=== PATIENT | male | born 1955 | race Hispanic/Latino ===

== ENCOUNTER 2017-04-28 19:16 | Observation (INO) | payer MEDICARE ==
[~2017-04-28 19:16] MED LIST: ISOVUE-370 76%-LOCM 1 ML ONE
[2017-04-28 20:02] LABS: #Lymphocytes 0.6 thou/uL (1.20-3.40); #Monocytes 0.9 thou/uL (0.11-0.59); #Neutrophils 8.3 thou/uL (1.40-6.50); %Basophils 0.3 % (0.0-1.0); %Eosinophils 0.4 % (0.0-10.0); %Lymphocytes 5.6 % (21.0-51.0); %Monocytes 8.9 % (0.0-10.0); %Neutrophils 84.9 % (42.0-75.0); Mean Corpuscular HGB CONC 35.9 g/dL (32.0-36.0); Mean Corpuscular Hemoglobin 31.9 pg (27.0-31.0); Mean Corpuscular Volume 88.9 fl (80.0-94.0); Platelet Count 178 thou/uL (130-400); RBC Distribution Width 11.5 % (11.5-14.5); Red Blood Cell (RBC) Count 4.06 mill/uL (4.70-6.10); White Blood Cell (WBC) Count 9.8 thou/uL (4.8-10.8)
[2017-04-28 20:08] LABS: Bilirubin Negative (Negative); Blood, Urine Large (Negative); Clarity CLEAR (Clear); Glucose, Urine (Dipstick) >=1000 mg/dL (Negative); Leukocyte Negative (Negative); Nitrite Negative (Negative); Protein, Urine (Dipstick) 300 mg/dL (Neg-Trace); Specific Gravity, Urine 1.029 (1.002-1.036); pH, Urine 5.5 (5.0-9.0)
[2017-04-28 20:10] LABS: Bacteria/HPF None Seen HPF (None Seen); Hyaline Casts/LPF 0-3 HYALINE CAST LPF (0-3 Hyaline); Pathc Cast-AUWi Flag 0.13 (0-2.49); Squamous Epithelial None Seen HPF (0-3); WBC/HPF 0-3 HPF (0-3)
[2017-04-28] MEDS ORDERED: Ketorolac Tromethamine 30 MG/ML VIAL ONE (20:21)
[2017-04-28 20:24] LABS: ALT (SGPT) 9 U/L (8-55); AST (SGOT) 16 U/L (5-34); Albumin 4.1 g/dL (3.4-4.8); Alkaline Phosphatase 68 U/L (40-150); Anion Gap 14 mmol/L (10-20); BUN (Urea Nitrogen) 21 mg/dL (8.4-25.7); Bilirubin, Total 0.9 mg/dL (0.2-1.2); Calc. Creatinine Clearance 0 mL/min (70-130); Calcium 9.5 mg/dL (7.8-10.44); Carbon Dioxide 22 mmol/L (23-31); Chloride 101 mmol/L (98-107); Estimated GFR-MDRD 58; Globulin 3.1 g/dL (2.4-3.5); Glucose 250 mg/dL (80-115); Lipase 16 U/L (8-78); Potassium 3.9 mmol/L (3.5-5.1); Protein, Total 7.2 g/dL (5.8-8.1); Sodium 133 mmol/L (136-145)
[2017-04-28] MEDS ORDERED: Piperacillin/Tazobactam 3.375 GM in Sodium Chloride 0.9% 100 ML IVPB SCH (21:00)
--- NOTE | 2017-04-28 21:20 | RAD ---
CHEST ONE VIEW 04/28/17 HISTORY: Preop COMPARISON: Chest one view . FINDINGS: The lungs are clear. No pneumothorax or effusion. The cardiac silhouette and mediastinal contours are within normal limits. IMPRESSION: No acute intrathoracic abnormality. POS: [facility]
[2017-04-28] MEDS ORDERED: Acetaminophen 1,000 MG in Premix Bag 1 BAG IVPB PRN (22:25)
[2017-04-28] MEDS ORDERED: Sodium Chloride 0.9% 1,000 ML IV SCH (22:30)
[2017-04-28 22:40] VITALS: BMI 30.2
--- NOTE | 2017-04-28 23:12 | CT ---
CT ABDOMEN AND PELVIS WITH CONTRAST APPENDIX PROTOCOL 04/28/17 HISTORY: Right lower quadrant abdominal pain. COMPARISON: CT from 2008. FINDINGS: Lung bases have some mild atelectatic changes. Mild cardiomegaly. Acute appendicitis with an appendicolith at the appendiceal base. Mild hyperenhancement of the mucosa of the appendix. There are multiple small appendicoliths within the appendiceal body. No free intraperitoneal air. Trace fluid. Mild reactive thickening of the cecal apex. There is a fat containing ventral hernia with a 1.5 cm hiatus containing only fat. The pancreas is un remarkable. Spleen is unremarkable. Partial prior right sided nephrectomy. There is early contrast ex cretion within the renal collecting systems. Too small to characterize hypodensity anterior cortex in terpolar left kidney. Prostate is enlarged. There is sequela of prior osteomyelitis discitis lumbar spine. IMPRESSION: Acute appendicitis with multiple appendicoliths. The appendix is post ileal and has a medial course. POS: [facility]
[2017-04-29] MEDS ORDERED: Ketorolac Tromethamine 30 MG/ML VIAL IVP PRN ×2 (02:30→05:38)
[2017-04-29] MEDS ORDERED: Piperacillin/Tazobactam 3.375 GM in Sodium Chloride 0.9% 100 ML IVPB SCH ×2 (03:00→09:00)
[2017-04-29] MEDS ORDERED: Acetaminophen 1,000 MG in Premix Bag 1 BAG IVPB PRN (05:39)
[2017-04-29] MEDS ORDERED: Sodium Chloride 0.9% 1,000 ML IV SCH (05:45)
[2017-04-29] MEDS ORDERED: Dextrose 5% in Water 1,000 ML IV PRN (07:39)
[2017-04-29] MEDS ORDERED: Dextrose 50% Abboject 50 ML SYRINGE SLOW IVP PRN (07:39)
--- NOTE | 2017-04-29 07:50 | HP ---
HISTORY OF PRESENT ILLNESS: Gulshan Borrego is a 62-year-old male patient who presents with 24-hour history of right lower quadrant pain followed by anorexia, nausea, and low grade fever. He presents to the emergency room. CAT scan demonstrated changes of appendicitis with multiple appendicoliths. His basic metabolic profile was normal. Glucose 250. White count 9, hemoglobin 13. ALLERGIES: None. TOBACCO: None. ALCOHOL: Rarely. MEDICATIONS: Vitamin D3 2000 units daily, carvedilol 6.25 mg b.i.d., aspirin 81 mg daily, metformin 1000 mg p.o. b.i.d. with meals, Lyrica 75 mg b.i.d., fish oil as needed. He takes hydrocodone occasi onally. PAST SURGICAL HISTORY: Coronary bypass grafting 2 years, three months ago with Dr. Liu. He has be en followed by Dr. Manzo. He had an echocardiogram done in Dr. Manzo's office six months ago and was t old it was normal. He had a colonoscopy a year ago, he had a partial right nephrectomy by Dr. Tyshawn peraza last year. PAST MEDICAL HISTORY: 1. Coronary artery disease, stable, asymptomatic. He has some bilateral chest pain. He was told it was chest wall and neurogenic, noncardiac. He is active without cardiac symptoms. 2. Diabetes mellitus. 3. He is noted to have incisional hernia in his upper midline abdomen just off the midline just abov e his midway lower portion of the abdomen just above the umbilicus, periumbilicus and xiphoid. REVIEW OF SYSTEMS: Ten point noncontributory. PHYSICAL EXAMINATION: VITAL SIGNS: Height 5 foot 6, 186 pounds, 30 BMI, 98.9 degrees, 121/73, 97%, 124/74. HEENT: Unremarkable. LUNGS: Clear to auscultation. CARDIAC: Regular rate and rhythm without murmur or gallop. ABDOMEN: Soft. Incisional hernia to the left of midline just beneath the trocar site scar junction 1/3 mid third the distance between the umbilicus and xiphoid. This is reducible. Right lower quadr ant tenderness and pain with a positive Rovsing sign. Guarding and rebound. EXTREMITIES: Unremarkable. LABORATORIES: As noted. ASSESSMENT AND PLAN: 1. Acute appendicitis with multiple appendicoliths. I would recommend laparoscopic video appendecto my. Risk of infection, bleeding, visceral injury, open procedure discussed. He consents 2. Diabetes mellitus. 3. Incisional hernia to be dealt with at a later time. 4. Diabetes mellitus. 5. Coronary artery disease, stable, asymptomatic.
[2017-04-29] MEDS ORDERED: FLU VACC QS2017-18 36 mo. & older 0.5 ML SYRINGE IM ONE (09:00)
[2017-04-29] MEDS ORDERED: Carvedilol 6.25 MG TAB PO SCH (09:00)
[2017-04-29] MEDS ORDERED: Bupivacaine HCl 0.5%/Epinephrine 1:200,000/PF 30 ml Vial ONE (11:55)
[2017-04-29] MEDS ORDERED: Fentanyl 250 MCG/5 ML VIAL ONE (11:57)
[2017-04-29] MEDS ORDERED: traMADol HCl 50 MG TAB PO PRN (13:08)
[2017-04-29] MEDS ORDERED: Acetaminophen 500 MG TAB PO PRN (13:08)
[2017-04-29] MEDS ORDERED: Ibuprofen 600 MG TAB PO PRN (13:08)
--- NOTE | 2017-04-29 13:57 | OP ---
DATE OF PROCEDURE: 04/29/2017 PREOPERATIVE DIAGNOSIS: Acute appendicitis. POSTOPERATIVE DIAGNOSIS: Acute appendicitis. PROCEDURE: Laparoscopic video appendectomy. SURGEON: Dr. Vasu Ingram ANESTHESIA: General. Local 0.5% Marcaine with epinephrine, 30 mL. PROCEDURE: The patient was taken to the operating room under general anesthesia, Stevens catheter plac ed at the beginning of the procedure, removed at the end. Abdomen prepared with ChloraPrep, draped i n routine fashion. Local anesthetic including skin seems tissue about each port site. Infraumbilica l incision made and pneumoperitoneum to 15 mmHg obtained with the Veress needle, replacing it with a 5 port, video laparoscope inserted. Right lateral subcostal incision made at an old trocar site scar and a 5 mm port placed. Suprapubic incision made and a 12 port placed. Appendix was acutely inflam ed. Mesoappendix taken down with LigaSure. The stump of the appendix divided with Endo-PHILL blue makayla d stapler. Stapled cecal stump was hemostatic and secure as the appendix placed in Endobag and remov ed. The suprapubic incision, suprapubic fascia approximated with 0 Vicryl suture, GraNee needle and port placed and abdominal cavity irrigated, irrigant evacuated. Hemostasis noted. Pneumoperitoneum evacuated, irrigant evacuated. All this instruments removed and all skin incisions approximated with interrupted subdermal 4-0 Monocryl and DermaGlue applied.
[2017-04-29] MEDS ORDERED: Ondansetron HCl/PF 4 MG/2 ML Vial IVP PRN (14:06)
[2017-04-29] MEDS ORDERED: Promethazine HCl 25 MG/ML VIAL IM PRN (14:06)
[2017-04-29] MEDS ORDERED: Promethazine HCl 25 MG/ML VIAL SLOW IVP PRN (14:06)
--- NOTE | 2017-04-29 14:19 | DIS ---
DATE OF ADMISSION: 04/28/2017 DATE OF DISCHARGE: 04/29/2017 DISCHARGE DIAGNOSIS: Acute appendicitis. PROCEDURE: Laparoscopic video appendectomy. CAT scan of abdomen and pelvis from the Emergency Room. HISTORY: A 62-year-old male presenting with history and exam consistent with appendicitis. He under went a CAT scan to confirm that. I was called at 8:00 p.m. regarding his appendicitis, but the OR wa s not available until 11:00 p.m., thus he was put in the hospital overnight with intravenous antibiot ics and laparoscopic appendectomy performed the next day. He is being discharged home to resume his home medications as well as Ultram #20, one refill, and Augmentin 500 b.i.d. for 5 days. Follow up i n my office in 2-3 weeks. Diet and activity as tolerated.
[2017-04-29] MEDS ORDERED: PROPOFOL 200 MG/20 ML VIAL ONE (14:22)
[2017-04-29] MEDS ORDERED: PHENYLEPHRINE-NS 100 MCG/ML 10 ML SYRINGE ONE (14:22)
[2017-04-29] MEDS ORDERED: Lidocaine 1% PF 5 ML VIAL ONE (14:22)
[2017-04-29] MEDS ORDERED: Ondansetron HCl/PF 4 MG/2 ML Vial ONE (14:22)
[2017-04-29] MEDS ORDERED: Glycopyrrolate 0.2 MG/ML 5 ML SYRINGE ONE (14:22)
[2017-04-29] MEDS: metFORMIN 500 MG TAB PO SCH (17:49)
[2017-04-29] MEDS: Fish Oil 1,000 MG CAP PO SCH (19:56)
[2017-04-29] MEDS: Pregabalin 75 MG CAP PO SCH (19:56)
[2017-04-29] MEDS: traMADol HCl 50 MG TAB PO PRN (19:57)
[2017-04-29] MEDS: Carvedilol 6.25 MG TAB PO SCH (19:57)
[2017-04-29] MEDS: HumaLOG 300 UNITS/3 ML VIAL SC PRN (21:04)
[2017-04-30] MEDS: traMADol HCl 50 MG TAB PO PRN (06:13)
[2017-04-30] MEDS: HumaLOG 300 UNITS/3 ML VIAL SC PRN (06:20)
[2017-04-30] MEDS ORDERED: Aspirin 81 mg Enteric Coated Tablet PO SCH (09:00)
[2017-04-30] MEDS ORDERED: Polyethylene Glycol 3350 17 GM Packet PO SCH (09:00)
[2017-04-30] MEDS: Pregabalin 75 MG CAP PO SCH (09:16)
[2017-04-30] MEDS: Fish Oil 1,000 MG CAP PO SCH (09:16)
[2017-04-30] MEDS: metFORMIN 500 MG TAB PO SCH (09:17)
[2017-04-30] MEDS: Carvedilol 6.25 MG TAB PO SCH (09:17)
[2017-04-30 11:39] VITALS: BP 109/83; TEMP 98.6
--- NOTE | 2017-05-02 15:57 | EKG ---
Test Reason : PREOP Blood Pressure : / mmHG Vent. Rate : 110 BPM Atrial Rate : 110 BPM P-R Int : 166 ms QRS Dur : 090 ms QT Int : 346 ms P-R-T Axes : 051 -29 101 degrees QTc Int : 468 ms Sinus tachycardia Abnormal ECG Confirmed by JACKIE SIMPSON, ISIDRA ([id number]), assignment editor STACEY YANEZ ([id number]) on 05/02/2017 3:56:28 PM Referred By: ISAIAS Confirmed By:ISIDRA MEJIA MD
== END 2017-04-30 12:45 | disposition home or self-care (01) ==
LOC: ERS 19:16 → SJJU 20:52
PROVIDERS: ADMIT Specialist; ATTEND Specialist
PROC: 0DTJ4ZZ Resection of Appendix, Percutaneous Endoscopic Approach (ICD-10-PCS; principal; 2017-04-29)
DX: K35.80 Unspecified acute appendicitis (principal); I25.10 Atherosclerotic heart disease of native coronary artery without angina pectoris; E11.9 Type 2 diabetes mellitus without complications; K43.2 Incisional hernia without obstruction or gangrene; Z79.82 Long term (current) use of aspirin; Z79.84 Long term (current) use of oral hypoglycemic drugs; Z79.899 Other long term (current) drug therapy; Z95.1 Presence of aortocoronary bypass graft
CPT/HCPCS: 44970; 71045; 74177; 80053; 82962 ×2; 83605; 83690; 85025; 86850; 86900; 86901; 87040; 88304; 93005; 96361; 96365; 96366; 96375 ×2; 96376; 99285; G0378; 36415; 36416; 81003; 81015; A4216; J0131; J0670; J1885; J2001; J2270; J2405; J2543; J2704; J3010; J7050

== ENCOUNTER 2017-11-25 11:29 | Outpatient (CLI) | payer MEDICARE ==
--- NOTE | 2017-11-25 14:28 | RAD ---
CHEST TWO VIEWS: History: Carcinoma of the right kidney. Comparison: 09-15-16, 04-28-17 FINDINGS: There are sternotomy wires. Normal cardiac silhouette. The pulmonary vessels and hilum are normal. Co stophrenic angles are clear. No consolidation or mass. No pneumothorax or osseous abnormalities. IMPRESSION: No acute cardiopulmonary process. POS: [facility]
== END 2017-11-25 11:30 | disposition home or self-care (01) ==
LOC: RAD 11:29
PROVIDERS: ATTEND Urology
DX: C64.1 Malignant neoplasm of right kidney, except renal pelvis (principal)
CPT/HCPCS: 71046

== ENCOUNTER 2018-02-22 08:24 | Emergency (ER) | payer MEDICARE ==
[2018-02-22] MEDS ORDERED: Fentanyl 100 MCG/2 ML VIAL ONE (08:43)
[2018-02-22] MEDS ORDERED: Lorazepam 2 MG/ML VIAL ONE (08:43)
--- NOTE | 2018-02-22 09:41 | RAD ---
LUMBAR SPINE RADIOGRAPHS 2 VIEWS: DATE: 02/22/2018. PROVIDED CLINICAL HISTORY: Back pain. FINDINGS: Five [id number] lumbar-type vertebral bodies are noted. Lumbar alignment appears normal. Verte bral body heights appear preserved. Prominent syndesmophyte formation about the lumbar spine with co nfluent osteophyte formation at the L4-5 junction and ankylosis of the L4-5 disk space. L4-5 facet a nkylosis may also be present. Vertebral body heights appear preserved. Pedicles appear intact. IMPRESSION: No radiographic evidence for an acute osseous abnormality. Findings suggest a seronegative spondyloa rthropathy. POS: [facility]
== END 2018-02-22 09:15 | disposition home or self-care (01) ==
LOC: ERS 08:24
DX: S39.012A Strain of muscle, fascia and tendon of lower back, initial encounter (principal); E78.00 Pure hypercholesterolemia, unspecified; Z79.84 Long term (current) use of oral hypoglycemic drugs; Z79.891 Long term (current) use of opiate analgesic; V43.92XA Unspecified car occupant injured in collision with other type car in traffic accident, initial encounter
CPT/HCPCS: 72100; 96372; J2060; J3010

== ENCOUNTER 2019-02-04 07:53 | Outpatient (CLI) | payer MEDICARE ==
[2019-02-04 09:20] LABS: #Eosinphils 0.3 thou/uL (0.0-0.7); #Lymphocytes 1.5 thou/uL (1.20-3.40); #Monocytes 0.4 thou/uL (0.11-0.59); #Neutrophils 3.1 thou/uL (1.40-6.50); %Basophils 0.9 % (0.0-1.0); %Lymphocytes 28.8 % (21.0-51.0); %Monocytes 6.7 % (0.0-10.0); %Neutrophils 58.7 % (42.0-75.0); Hemoglobin 13.3 g/dL (14.0-18.0); Mean Corpuscular HGB CONC 34.8 g/dL (32.0-36.0); Mean Corpuscular Hemoglobin 31.7 pg (27.0-31.0); Mean Corpuscular Volume 91.3 fL (78.0-98.0); Mean Platelet Volume 8.1 fL (7.4-10.4); Platelet Count 204 thou/uL (130-400); RBC Distribution Width 11.6 % (11.5-14.5); Red Blood Cell (RBC) Count 4.18 mill/uL (4.70-6.10); White Blood Cell (WBC) Count 5.3 thou/uL (4.8-10.8)
[2019-02-04 09:45] LABS: Anion Gap 12 mmol/L (10-20); BUN (Urea Nitrogen) 30 mg/dL (8.4-25.7); Calc. Creatinine Clearance 0 mL/min (70-130); Calcium 9.2 mg/dL (7.8-10.44); Carbon Dioxide 23 mmol/L (23-31); Chloride 110 mmol/L (98-107); Estimated GFR-MDRD 56; Glucose 199 mg/dL (80-115); Potassium 4.8 mmol/L (3.5-5.1); Sodium 140 mmol/L (136-145)
== END 2019-02-04 07:54 | disposition home or self-care (01) ==
LOC: LABBT 07:53
PROVIDERS: ATTEND Specialist
DX: Z01.818 Encounter for other preprocedural examination (principal); K43.2 Incisional hernia without obstruction or gangrene
CPT/HCPCS: 80048; 85025; 93005; 93010

== ENCOUNTER 2019-03-18 06:01 | Day surgery (SDC) | payer MEDICARE ==
[2019-02-04 08:18] VITALS: BMI 31.6
--- NOTE | 2019-02-04 14:12 | HP ---
HISTORY OF PRESENT ILLNESS: Gulshan Borrego is a 63-year-old male. In April 2017, I performed laparoscopic video appendectomy for acute appendicitis. He was noted at that time to have an incisional hernia located between his umbilicus and xiphoid. This is located at the junction proximal 2/3, distal 1/3 area upper abdomen above the umbilicus approximately 4 fingerbreadths above the umbilicus. This is located at trocar site from a previous partial right nephrectomy performed by Dr. Bustos. Plan is for laparoscopic robotic mesh repair, incisional hernia. He had a coronary artery bypass grafting [address] Kaiser earlier this year and Dr. Kaiser will see the patient preoperatively for preoperative clearance. The patient is asymptomatic. He rides his stationary bicycle daily and lifts weights without chest pain or pressure. He is diabetic. He does not smoke. Alcohol, none. MEDICATIONS: 1. Vitamin D3. 2. Carvedilol. 3. Aspirin. 4. Metformin. 5. Lyrica. 6. Fish oil. PAST SURGICAL HISTORY: Coronary artery bypass grafting 2.[address] Liu, followed by Dr. Kaiser. Currently, echocardiogram approximately a year ago was normal per his recollection with Dr. Lance Manzo. He had a colonoscopy a year ago. He had a partial right nephrectomy with Dr. Bustos, one year ago. PAST MEDICAL HISTORY: Coronary artery disease, asymptomatic; diabetes mellitus; and incisional hernia. REVIEW OF SYSTEMS: A 10-point review of systems noncontributory. FAMILY HISTORY: Noncontributory. SOCIAL HISTORY: Tobacco, none. Alcohol, rarely. ALLERGIES: NONE. PHYSICAL EXAMINATION: VITAL SIGNS: Weight 190 pounds. Height 5 feet and 5 inches. Blood pressure 148/79, pulse 71, and temperature 98.4 degrees. HEAD, EARS, EYES, NOSE, AND THROAT: Unremarkable. LUNGS: Clear to auscultation. CARDIAC: Regular rate and rhythm without murmur or gallop. Sternotomy well healed. ABDOMEN: Trocar site, upper abdomen 4 fingerbreadths above the umbilicus with underlying incisional hernia, reduces when supine with a 2.5 to 3 cm defect. ASSESSMENT/PLAN: 1. Incisional hernia, would recommend robot repair using mesh. He understands risks and benefits and consents. He understands risks of infection, bleeding, reoperation, recurrence of hernia. 2. Coronary artery disease, stable, asymptomatic. He will see Dr. Kaiser preoperatively. 3. Diabetes. 4. On aspirin. Continue to take that. Do not hold prior to surgery. Job ID: [id number]
[2019-03-18] MEDS ORDERED: Acetaminophen 500 MG TAB ONE (06:18)
[2019-03-18] MEDS ORDERED: Ketorolac Tromethamine 30 MG/ML VIAL ONE (06:18)
[2019-03-18] MEDS ORDERED: Bupivacaine PF 0.5% 30 ML VIAL ONE (06:34)
[2019-03-18] MEDS ORDERED: Lidocaine 1% w/Epinephrine 1:100K 20 ML VIAL ONE (06:34)
[2019-03-18] MEDS ORDERED: Fentanyl 100 MCG/2 ML VIAL ONE ×3 (06:49→09:54)
[2019-03-18 06:50] LABS: #Eosinphils 0.3 thou/uL (0.0-0.7); #Lymphocytes 1.7 thou/uL (1.20-3.40); #Monocytes 0.5 thou/uL (0.11-0.59); #Neutrophils 4.7 thou/uL (1.40-6.50); %Basophils 0.7 % (0.0-1.0); %Eosinophils 4.2 % (0.0-10.0); %Lymphocytes 23.5 % (21.0-51.0); %Monocytes 6.4 % (0.0-10.0); %Neutrophils 65.3 % (42.0-75.0); Hemoglobin 13.8 g/dL (14.0-18.0); Mean Corpuscular HGB CONC 33.9 g/dL (32.0-36.0); Mean Corpuscular Hemoglobin 30.8 pg (27.0-31.0); Mean Corpuscular Volume 90.8 fL (78.0-98.0); Mean Platelet Volume 8.1 fL (7.4-10.4); Platelet Count 204 thou/uL (130-400); RBC Distribution Width 11.5 % (11.5-14.5); Red Blood Cell (RBC) Count 4.49 mill/uL (4.70-6.10); White Blood Cell (WBC) Count 7.2 thou/uL (4.8-10.8)
[2019-03-18 07:09] LABS: Anion Gap 13 mmol/L (10-20); BUN (Urea Nitrogen) 25 mg/dL (8.4-25.7); Calc. Creatinine Clearance 83 mL/min (70-130); Calcium 9.1 mg/dL (7.8-10.44); Carbon Dioxide 24 mmol/L (23-31); Chloride 106 mmol/L (98-107); Estimated GFR-MDRD 66; Glucose 178 mg/dL (80-115); Potassium 4.5 mmol/L (3.5-5.1); Sodium 138 mmol/L (136-145)
[2019-03-18] MEDS ORDERED: Promethazine HCl 25 MG/ML VIAL SLOW IVP PRN (07:48)
[2019-03-18] MEDS ORDERED: HYDROmorphone 2 MG/ML VIAL SLOW IVP PRN (07:48)
[2019-03-18] MEDS ORDERED: Meperidine HCl/PF 25 MG/ML VIAL SLOW IVP PRN (07:48)
[2019-03-18] MEDS ORDERED: Ondansetron HCl/PF 4 MG/2 ML Vial IVP PRN (07:48)
--- NOTE | 2019-03-18 09:12 | OP ---
DATE OF PROCEDURE: 03/18/2019 PREOPERATIVE DIAGNOSIS: Incisional hernia, located just left paramedian about 3 to 4 cm above the umbilicus from no trocar site from robotic nephrectomy. POSTOPERATIVE DIAGNOSIS: Incisional hernia, located just left paramedian about 3 to 4 cm above the umbilicus from no trocar site from robotic nephrectomy. PROCEDURE PERFORMED: Robot laparoscopic repair of incisional hernia with mesh reinforcement, 11 cm Ventralight in diameter. ANESTHESIA: General, local with 0.5% Marcaine 30 mL, mixed with 1% Xylocaine with epinephrine 20 mL. DESCRIPTION OF PROCEDURE: The patient was taken to the operating room, where under general anesthesia, Stevens catheter placed at the beginning of procedure and removed at the end. Abdomen was clipped of hair, prepared with ChloraPrep, and draped in routine fashion. Right lateral subcostal incision made, right lateral mid abdominal incision was made, and a right lateral lower quadrant abdominal incision made and an 8-mm port, 11 mm balloon port, and an 8 mm port placed and the robot was docked. After pneumoperitoneum obtained with a Veress needle to 15 mmHg. Robot incisional hernia undertaken by clearing incarcerated omentum in the hernia sac. Using cautery for energy, identifying the hernia sac, removing a portion of the hernia sac, avoiding violation of the skin. Pneumoperitoneum reduced to 9 mmHg and fascia closed with continuous to-and-fro sutures of #1 V-Loc suture. Ventralight mesh 11 cm in diameter placed and properly oriented and secured to the abdominal wall with continuous suture of the remaining portion of #1 V-Loc and then 2-0 V-Loc suture. Once this was secured, sutures were cut, removed, and pneumoperitoneum and instruments removed. All skin incisions were approximated with continuous subcu layer of 4-0 Monocryl and [place] glue applied. The patient tolerated the procedure well. Job ID: [id number]
[2019-03-18] MEDS ORDERED: Glycopyrrolate 0.2 MG/ML 5 ML SYRINGE ONE (09:35)
[2019-03-18] MEDS ORDERED: Ondansetron PF 4 MG/2 ML Vial ONE (09:35)
[2019-03-18] MEDS ORDERED: Rocuronium Bromide 10 MG/ML (10ML VIAL) ONE (09:35)
[2019-03-18] MEDS ORDERED: Lidocaine 1% PF 5 ML VIAL ONE (09:35)
[2019-03-18] MEDS ORDERED: Metoclopramide HCl 10 MG/2 ML VIAL ONE (09:35)
[2019-03-18] MEDS ORDERED: ePHEDrine/0.9% NaCl/PF SYRINGE 50 mg/10 ml ONE (09:35)
[2019-03-18] MEDS ORDERED: PROPOFOL 200 MG/20 ML VIAL ONE (09:35)
[2019-03-18] MEDS ORDERED: traMADol HCl 50 MG TAB ONE (11:06)
== END 2019-03-18 11:45 | disposition home or self-care (01) ==
LOC: SDC 06:01
PROVIDERS: ATTEND Specialist
PROC: 0WUF4JZ Supplement Abdominal Wall with Synthetic Substitute, Percutaneous Endoscopic Approach (ICD-10-PCS; principal; 2019-03-18)
DX: K43.0 Incisional hernia with obstruction, without gangrene (principal); I25.10 Atherosclerotic heart disease of native coronary artery without angina pectoris; E11.9 Type 2 diabetes mellitus without complications; Z79.4 Long term (current) use of insulin; Z79.82 Long term (current) use of aspirin; Z79.899 Other long term (current) drug therapy; Z90.5 Acquired absence of kidney; Z95.1 Presence of aortocoronary bypass graft
CPT/HCPCS: 49655; 80048; 85025; C1781; 36415; 36416; J0690; J1885; J2001; J2405; J2704; J2765; J3010; S0020

== ENCOUNTER 2019-03-19 09:27 | Emergency (ER) | payer MEDICARE ==
[2019-03-19] MEDS ORDERED: Ondansetron ODT 4 MG TAB ONE (09:42)
[2019-03-19] MEDS ORDERED: Ondansetron PF 4 MG/2 ML Vial ONE (10:22)
[2019-03-19] MEDS ORDERED: Morphine 4 MG/ML VIAL ONE (10:22)
[2019-03-19 10:26] LABS: #Lymphocytes 0.4 thou/uL (1.20-3.40); #Monocytes 0.2 thou/uL (0.11-0.59); #Neutrophils 8.2 thou/uL (1.40-6.50); %Basophils 0.2 % (0.0-1.0); %Lymphocytes 4.4 % (21.0-51.0); %Monocytes 2.2 % (0.0-10.0); %Neutrophils 93.1 % (42.0-75.0); Hemoglobin 13.3 g/dL (14.0-18.0); Mean Corpuscular HGB CONC 33.7 g/dL (32.0-36.0); Mean Corpuscular Hemoglobin 30.8 pg (27.0-31.0); Mean Corpuscular Volume 91.4 fL (78.0-98.0); Mean Platelet Volume 7.8 fL (7.4-10.4); Platelet Count 180 thou/uL (130-400); RBC Distribution Width 11.6 % (11.5-14.5); Red Blood Cell (RBC) Count 4.33 mill/uL (4.70-6.10); White Blood Cell (WBC) Count 8.8 thou/uL (4.8-10.8)
[2019-03-19 10:48] LABS: ALT (SGPT) 10 U/L (8-55); AST (SGOT) 18 U/L (5-34); Alkaline Phosphatase 68 U/L (40-110); Anion Gap 14 mmol/L (10-20); BUN (Urea Nitrogen) 19 mg/dL (8.4-25.7); Calc. Creatinine Clearance 0 mL/min (70-130); Calcium 8.7 mg/dL (7.8-10.44); Carbon Dioxide 24 mmol/L (23-31); Chloride 100 mmol/L (98-107); Estimated GFR-MDRD 75; Globulin 3.1 g/dL (2.4-3.5); Glucose 226 mg/dL (80-115); Lipase 29 U/L (8-78); Potassium 4.3 mmol/L (3.5-5.1); Protein, Total 7.1 g/dL (5.8-8.1); Sodium 134 mmol/L (136-145)
[2019-03-19] MEDS ORDERED: Iopamidol-370 76% 500 ML 1 ML ONE (11:05)
--- NOTE | 2019-03-19 11:30 | CT ---
CT Abdomen Pelvis W Con: 03/19/2019 10:13 AM CLINICAL INFORMATION: Pain and complication status post ventral hernia repair COMPARISON: 04/28/2017 TECHNIQUE: Multiple contiguous axial images were obtained and a CT of the abdomen and pelvis with IV contrast. C oronal and sagittal reformats were performed. FINDINGS: Lower Chest: Bibasilar atelectasis Abdomen: Liver: within normal limits. Bile Ducts: Normal caliber. Gallbladder: No calcified gallstones. Normal caliber wall. Pancreas: within normal limits. Spleen: within normal limits. Adrenals: within normal limits. Kidneys: within normal limits. Pelvis: Reproductive Organs: No pelvic masses. Ureters: within normal limits. Bladder: Moderately distended Peritoneum: No ascites or free air, no fluid collection. Bowel: Normal caliber. Mesentery and Retroperitoneum: No enlarged mesenteric or retroperitoneal lymph nodes. Vessels: Normal. Abdominal Wall: Stranding changes are seen in the anterior abdominal wall from recent hernia repair. No recurrent hernia is seen. Air is seen adjacent to a linear structure which may represent mesh at the hernia site. Bones: Degenerative changes in the spine. IMPRESSION: Expected post surgical changes from ventral hernia repair without evidence of complication.
[2019-03-19] MEDS ORDERED: Promethazine HCl 25 MG/ML VIAL ONE (13:05)
[2019-03-19 14:04] LABS: Bacteria/HPF None Seen HPF (None Seen); Bilirubin Negative (Negative); Blood, Urine 2+ (Negative); Clarity Clear (Clear); Glucose, Urine (Dipstick) Greater than 1000 mg/dL (Negative); Leukocyte Negative Leu/uL (Negative); Nitrite Negative (Negative); Protein, Urine (Dipstick) 300 mg/dL (Neg-Trace); Squamous Epithelial 0-3 HPF (0-3); Urobilinogen Normal mg/dL (Less than 2); WBC/HPF 0-3 HPF (0-3)
== END 2019-03-19 14:24 | disposition home or self-care (01) ==
LOC: ERS 09:27
DX: K91.0 Vomiting following gastrointestinal surgery (principal); R10.817 Generalized abdominal tenderness; E78.00 Pure hypercholesterolemia, unspecified; E11.9 Type 2 diabetes mellitus without complications; Z79.891 Long term (current) use of opiate analgesic; Z79.82 Long term (current) use of aspirin; Z79.899 Other long term (current) drug therapy
CPT/HCPCS: 74177; 80053; 81003; 81015; 83690; 85025; 93005; 96361; 96365; 96375; J2270; J2405; J2550; Q0162; Q9967

== ENCOUNTER 2019-11-25 08:30 | Outpatient (CLI) | payer MEDICARE ==
--- NOTE | 2019-11-25 09:35 | MRI ---
MRI OF RIGHT SHOULDER PERFORMED WITHOUT CONTRAST ENHANCEMENT: Date: 11/25/2019 HISTORY: Right shoulder pain. FINDINGS: There is moderate arthrosis of the AC joint. There is a far anterior focal full thickness supraspinat us tendon tear. Full thickness component if 5-6 mm. It does continue slightly posterior to this. This is a higher grade undersurface tear and there is significant tendinosis of the entire supraspinatus tendon. The infraspinatus tendon is intact. Subscapularis muscle and tendon are normal in appearance. Biceps tendon is normal in position within the bicipital groove. The bicipital labral complex shows a SLAP-type tear involving the superior and extending into the pos terior superior labrum. Inferior glenohumeral ligamentous and labral complex is unremarkable. No significant rotator cuff muscle atrophy. IMPRESSION: 1. Full thickness far anterior supraspinatus tendon tear measuring 5-6 mm in size. The tendon is min imally retracted in this area by approximately 5.0 mm. There is also a high grade undersurface compon ent extending slightly posterior to this level and significant tendinosis of the posterior half of th e supraspinatus tendon. 2. SLAP-type tear of the labrum. POS: [facility]
== END 2019-11-25 08:31 | disposition home or self-care (01) ==
LOC: BICMRI 08:30
PROVIDERS: ATTEND Orthopaedic Surgery
DX: M25.511 Pain in right shoulder (principal); M75.101 Unspecified rotator cuff tear or rupture of right shoulder, not specified as traumatic; S43.431A Superior glenoid labrum lesion of right shoulder, initial encounter

== ENCOUNTER 2020-01-03 06:39 | Outpatient (CLI) | payer MEDICARE ==
[2020-01-03 15:38] LABS: #Eosinphils 0.2 10x3/uL (0.0-0.5); #Monocytes 0.4 10x3/uL (0.0-1.1); #Neutrophils 3.3 10x3/uL (1.5-8.4); %Basophils 0.5 % (0.0-2.0); %Eosinophils 3.6 % (0.0-6.0); %Monocytes 7.8 % (0.0-10.0); %Neutrophils 58.7 % (40.0-75.0); Hemoglobin 12.4 g/dL (14.0-18.0); Mean Corpuscular HGB CONC 35.1 G/DL (32.0-36.0); Mean Corpuscular Hemoglobin 30.7 PG (27.0-33.0); Mean Corpuscular Volume 87.4 fl (80.0-100.0); Mean Platelet Volume 11.1 fl (7.4-10.4); Platelet Count 210 10x3/uL (130-400); RBC Distribution Width 11.7 % (11.5-14.5); Red Blood Cell (RBC) Count 4.04 10x6/uL (4.40-5.80); White Blood Cell (WBC) Count 5.6 10x3/uL (4.5-11.0)
[2020-01-03 15:46] LABS: Anion Gap 16 mmol/L (10-20); BUN (Urea Nitrogen) 35 mg/dL (8.4-25.7); Calc. Creatinine Clearance 0 mL/min (70-130); Calcium 8.4 mg/dL (7.8-10.44); Carbon Dioxide 20 mmol/L (23-31); Chloride 102 mmol/L (98-107); Estimated GFR-MDRD 37; Glucose 406 mg/dL (80-115); Sodium 133 mmol/L (136-145)
[2020-01-04 10:54] LABS: SARS-CoV-2 MS2 Positive; SARS-CoV-2 N Gene Negative; SARS-CoV-2 S Gene Negative; SARS-CoV-2 by NAA Not Detected (NotDetected); SARS-CoV-2 orf1ab Negative
== END 2020-01-03 06:40 | disposition home or self-care (01) ==
LOC: LABBT 06:39
PROVIDERS: ATTEND Orthopaedic Surgery
DX: Z01.818 Encounter for other preprocedural examination (principal); Z20.828 Contact with and (suspected) exposure to other viral communicable diseases; M75.101 Unspecified rotator cuff tear or rupture of right shoulder, not specified as traumatic
CPT/HCPCS: 80048; 85025; 93005; U0003; 87635; 93010

== ENCOUNTER 2020-01-06 06:27 | Day surgery (SDC) | payer MEDICARE ==
[2020-01-05 08:51] VITALS: BMI 30.7
[2020-01-06] MEDS ORDERED: Fentanyl 100 MCG/2 ML VIAL ONE ×2 (07:32→08:35)
[2020-01-06] MEDS ORDERED: Midazolam HCl 2 mg/2 ml Vial ONE (07:32)
[2020-01-06] MEDS ORDERED: Lidocaine 1% (PF) 30 ML VIAL ONE (07:45)
[2020-01-06] MEDS ORDERED: Fentanyl 100 MCG/2 ML VIAL IV PRN (08:31)
[2020-01-06] MEDS ORDERED: Insulin Regular 300 UNITS/3 ML VIAL ONE (08:39)
[2020-01-06] MEDS ORDERED: Ondansetron PF 4 MG/2 ML Vial IVP PRN (08:45)
[2020-01-06] MEDS ORDERED: Zolpidem Tartrate 5 MG TAB PO PRN (08:45)
[2020-01-06] MEDS ORDERED: HYDROcodone/Acetaminophen 10/325 mg Tablet PO PRN ×2 (08:45)
[2020-01-06] MEDS ORDERED: traMADol HCl 50 MG TAB PO PRN ×2 (08:45)
[2020-01-06] MEDS ORDERED: Promethazine HCl 25 MG/ML VIAL IM PRN ×2 (08:45→09:41)
[2020-01-06] MEDS ORDERED: Ropivacaine 0.2% 550 ML 550 ML NERVE BLCK SCH (08:45)
[2020-01-06] MEDS ORDERED: SUGAMMADEX SODIUM 200 MG/2 ML VIAL ONE (09:28)
[2020-01-06] MEDS ORDERED: Promethazine HCl 25 MG/ML VIAL SLOW IVP PRN (09:41)
[2020-01-06] MEDS ORDERED: Ondansetron HCl/PF 4 MG/2 ML Vial IVP PRN (09:41)
[2020-01-06] MEDS ORDERED: Ropivacaine 0.2% HCl/PF (40 MG/20 ML VIAL) ONE (10:35)
[2020-01-06] MEDS ORDERED: Ropivacaine 0.5% HCl/PF (150 MG/30 ML VIAL) ONE (10:35)
[2020-01-06] MEDS ORDERED: Glycopyrrolate 0.2 MG/ML 5 ML SYRINGE ONE (10:35)
[2020-01-06] MEDS ORDERED: ePHEDrine 50 MG/ML VIAL ONE (10:35)
[2020-01-06] MEDS ORDERED: PROPOFOL 200 MG/20 ML VIAL ONE (10:35)
[2020-01-06] MEDS ORDERED: Rocuronium Bromide 10 MG/ML (10ML VIAL) ONE (10:35)
[2020-01-06] MEDS ORDERED: Lidocaine 1% PF 5 ML VIAL ONE (10:35)
[2020-01-06] MEDS ORDERED: Ondansetron PF 4 MG/2 ML Vial ONE (10:35)
[2020-01-06] MEDS ORDERED: Ondansetron ODT 4 MG TAB ONE (12:05)
--- NOTE | 2020-01-08 13:25 | OP ---
DATE OF PROCEDURE: 01/06/2020 PREOPERATIVE DIAGNOSIS: Rotator cuff tear, right shoulder. POSTOPERATIVE DIAGNOSIS: Rotator cuff tear, right shoulder. PROCEDURE PERFORMED: Right arthroscopic rotator cuff repair. ANESTHESIA: General. BLOOD LOSS: Minimal. SPECIMENS: None. DRAINS: None. COMPLICATIONS: None. DESCRIPTION OF PROCEDURE: The patient was taken to the operating room, where general anesthesia was induced. He was placed in left lateral decubitus position. Right arm was placed in 15 pounds of traction, prepped and draped in usual sterile fashion. Scope was placed in glenohumeral joint. There was no arthritis. He had a little bit of a degenerative labral tear anteriorly, but his biceps root was stable. The scope was placed in the subacromial bursa. The rotator cuff tear was easily identified. I freshened the tear. I freshened the greater tuberosity. I performed an inferior acromioplasty and subacromial decompression. I passed the FiberTape through the defect and repaired this down to the freshened bone using a self-punching SwiveLock device with a very solid repair. Shoulder was then drained. Portals were closed with nylon suture. Sterile dressings were applied. Job ID: [id number]
== END 2020-01-06 12:12 | disposition home or self-care (01) ==
LOC: SDC 06:27
PROVIDERS: ATTEND Orthopaedic Surgery
PROC: 0LQ14ZZ Repair Right Shoulder Tendon, Percutaneous Endoscopic Approach (ICD-10-PCS; principal; 2020-01-06)
PROC: 0RNJ4ZZ Release Right Shoulder Joint, Percutaneous Endoscopic Approach (ICD-10-PCS; 2020-01-06)
PROC: 3E0T3BZ Introduction of Anesthetic Agent into Peripheral Nerves and Plexi, Percutaneous Approach (ICD-10-PCS; 2020-01-06)
DX: M75.121 Complete rotator cuff tear or rupture of right shoulder, not specified as traumatic (principal); S43.431A Superior glenoid labrum lesion of right shoulder, initial encounter; G89.18 Other acute postprocedural pain; E11.9 Type 2 diabetes mellitus without complications; I51.9 Heart disease, unspecified; Z87.891 Personal history of nicotine dependence; Z79.82 Long term (current) use of aspirin; Z79.84 Long term (current) use of oral hypoglycemic drugs; Z79.899 Other long term (current) drug therapy; Z91.040 Latex allergy status; Z95.1 Presence of aortocoronary bypass graft
CPT/HCPCS: 29826; 29827; 64416; 82962; 97139; A4306; C1713; 36416; J1815; J2001; J2250; J2405; J2704; J2795; J3010; J3490; Q0162

== ENCOUNTER 2020-01-08 17:00 | Emergency (ER) | payer MEDICARE ==
[~2020-01-08 17:00] MED LIST changes: -ISOVUE-370 76%-LOCM 1 ML ONE; +Iopamidol-370 76% 500 ML 1 ML ONE
[2020-01-08 17:30] LABS: #Basophils 0.1 thou/uL (0.0-0.2); #Eosinphils 0.3 thou/uL (0.0-0.7); #Lymphocytes 1.4 thou/uL (1.20-3.40); #Monocytes 0.5 thou/uL (0.11-0.59); #Neutrophils 4.7 thou/uL (1.40-6.50); %Basophils 1.1 % (0.0-1.0); %Eosinophils 4.7 % (0.0-10.0); %Lymphocytes 20.1 % (21.0-51.0); %Monocytes 6.6 % (0.0-10.0); %Neutrophils 67.5 % (42.0-75.0); Hemoglobin 12.8 g/dL (14.0-18.0); Mean Corpuscular HGB CONC 35.8 g/dL (32.0-36.0); Mean Corpuscular Volume 92.2 fL (78.0-98.0); Mean Platelet Volume 8.2 fL (7.4-10.4); Platelet Count 177 thou/uL (130-400); RBC Distribution Width 11.4 % (11.5-14.5); Red Blood Cell (RBC) Count 3.88 mill/uL (4.70-6.10)
[2020-01-08 17:51] LABS: ALT (SGPT) 14 U/L (8-55); AST (SGOT) 14 U/L (5-34); Albumin 3.5 g/dL (3.4-4.8); Alkaline Phosphatase 77 U/L (40-110); Anion Gap 16 mmol/L (10-20); BUN (Urea Nitrogen) 33 mg/dL (8.4-25.7); Bilirubin, Total 0.3 mg/dL (0.2-1.2); Calc. Creatinine Clearance 0 mL/min (70-130); Calcium 8.7 mg/dL (7.8-10.44); Carbon Dioxide 20 mmol/L (23-31); Chloride 101 mmol/L (98-107); Estimated GFR-MDRD 44; Globulin 3.3 g/dL (2.4-3.5); Glucose 463 mg/dL (80-115); Potassium 4.1 mmol/L (3.5-5.1); Protein, Total 6.8 g/dL (5.8-8.1); Sodium 133 mmol/L (136-145)
--- NOTE | 2020-01-08 17:58 | RAD ---
EXAM: Single view of the chest HISTORY: Shortness of breath since shoulder surgery 3 days ago COMPARISON: 04/28/2017 FINDINGS: Single view of the chest shows a normal sized cardiomediastinal silhouette. The patient is status post sternotomy. Linear atelectasis is seen in the right lung base with slight elevation of the right hemidiaphragm. There is no evidence of consolidation, mass, or pleural effusion. No acute osseous abnormality. IMPRESSION: Right basilar atelectasis
--- NOTE | 2020-01-08 20:15 | CT ---
EXAM: CTA of the chest HISTORY: Dyspnea. Recent rotator cuff surgery. COMPARISON: None TECHNIQUE: Multiple contiguous axial images were obtained a CTA of the chest with contrast per pulmon ravi embolism protocol. 3-D oblique MIP reformats and direct coronal reformats were performed. FINDINGS: HEART: Normal in size without focal cardiac abnormality. Status post CABG. Calcifications seen in the coronary arteries. PULMONARY ARTERIES: Normal in caliber without filling defects to suggest pulmonary emboli. MEDIASTINUM: No hilar or mediastinal lymphadenopathy. LUNGS: No focal infiltrates or masses. Bilateral dependent atelectasis, right greater than left. PLEURAL SPACE: No pleural effusion or pneumothorax. CHEST WALL SOFT TISSUES: There is fullness of the right thyroid lobe. VISUALIZED OSSEOUS STRUCTURES: No acute abnormality. Degenerative changes are seen in the spine. A gem ne anchor seen in the right humerus. Air surrounding the right shoulder is likely from recent surgery. VISUALIZED SUBDIAPHRAGMATIC STRUCTURES: Unremarkable IMPRESSION: 1. No evidence of pulmonary thromboembolism 2. Bibasilar atelectasis 3. Right thyroid lobe fullness. A nonemergent outpatient thyroid ultrasound should be performed for f urther evaluation.
[2020-01-08] MEDS ORDERED: Aspirin Chewable 81 MG TAB ONE (20:45)
== END 2020-01-08 20:59 | disposition home or self-care (01) ==
LOC: ERS 17:00
DX: I12.9 Hypertensive chronic kidney disease with stage 1 through stage 4 chronic kidney disease, or unspecified chronic kidney disease (principal); N18.9 Chronic kidney disease, unspecified; E11.22 Type 2 diabetes mellitus with diabetic chronic kidney disease; E78.00 Pure hypercholesterolemia, unspecified; Z79.82 Long term (current) use of aspirin; Z79.899 Other long term (current) drug therapy; Z85.528 Personal history of other malignant neoplasm of kidney
CPT/HCPCS: 36415; 71045; 71275; 80053; 83880; 84484; 85025; 85379; 93005; Q9967

== ENCOUNTER 2020-01-31 12:03 | Outpatient (CLI) | payer MEDICARE ==
[~2020-01-31 12:03] MED LIST changes: +Iopamidol 370 76% 100 ML VIAL ONE; -Iopamidol-370 76% 500 ML 1 ML ONE
--- NOTE | 2020-01-31 13:06 | CT ---
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 Follow-up. TECHNIQUE: Precontrast, nephrographic/venous phase scan, and pyelographic/excretory phase scan, from lung bases to iliac crests. COMPARISON: 11/16/2015 and 03/19/2019 FINDINGS: Again noted is the shallow postsurgical defect involving the lateral cortex of the right renal mid-lo wer pole, with broad, thin hyperdense postsurgical material along the lateral surface of the right kidney. No evidence of residual or recurrent neoplastic tumor in the right kidney. No suspicious retroperiton eal, mesenteric, or michelle hepatis, lymphadenopathy. Normal liver, adrenals, pancreas, and spleen. No abdominal aortic aneurysm. Surgically absent appendix. Visualized upper portions of large intestine and small intestine show no acute pathology. Lung bases are clear. No ascites or pneumoperitoneum identified. No osteolytic skeletal metastatic lesions. No interval change since 03/19/2019 overall. Nonspecific small slightly greater than 1 cm left renal parenchymal midpole lesion, too small to oscar acterize, unchanged since 03/19/2019 and little or no change since 11/16/2015 IMPRESSION: 1.) Status post surgical resection of right renal neoplastic tumor. 2) no evidence of recurrent or metastatic neoplastic disease.
== END 2020-01-31 12:04 | disposition home or self-care (01) ==
LOC: CT 12:03
PROVIDERS: ATTEND Urology
DX: C64.1 Malignant neoplasm of right kidney, except renal pelvis (principal); Z98.890 Other specified postprocedural states
CPT/HCPCS: 74170; 82565; Q9967

== ENCOUNTER 2020-02-06 10:25 | Outpatient (CLI) | payer MEDICARE ==
--- NOTE | 2020-02-06 11:31 | RAD ---
XR Chest Pa Lat STANDARD HISTORY: Malignant neoplasm of right kidney, except renal pelvis COMPARISON: 01/08/2020 and 11/25/2017 FINDINGS: The heart size is normal. Changes of median sternotomy are again seen. The lungs are well e xpanded without focal areas of consolidation, pneumothorax or pleural effusions. No acute osseous abnormalities are noted. IMPRESSION: No radiographic evidence of acute cardiopulmonary process.
== END 2020-02-06 10:26 | disposition home or self-care (01) ==
LOC: BICRAD 10:25
PROVIDERS: ATTEND Urology
DX: C64.1 Malignant neoplasm of right kidney, except renal pelvis (principal)
CPT/HCPCS: 36415; 71046; 80048; 81001

== ENCOUNTER 2020-10-11 | Outpatient (CLI) | payer MEDICARE | END 2020-10-11 15:16 | disposition home or self-care (01) ==

== ENCOUNTER 2020-12-28 12:59 | Outpatient (CLI) | payer MEDICARE | END 2020-12-28 13:00 | disposition home or self-care (01) | LOC: BICULT 12:59 | PROVIDERS: ATTEND Urology | DX: C64.1 Malignant neoplasm of right kidney, except renal pelvis (principal) | CPT/HCPCS: 76770 ==

== ENCOUNTER 2021-05-22 08:13 | Observation (INO) | payer MEDICARE ==
[2021-05-22] MEDS ORDERED: Ondansetron PF 4 MG/2 ML Vial ONE ×2 (08:53→11:00)
[2021-05-22] MEDS ORDERED: Metoprolol Tartrate 5 MG/5 ML VIAL ONE (09:19)
[2021-05-22 09:21] LABS: #Lymphocytes 1.8 thou/uL (1.20-3.40); #Monocytes 0.7 thou/uL (0.11-0.59); #Neutrophils 7.1 thou/uL (1.40-6.50); %Basophils 0.5 % (0.0-1.0); %Eosinophils 0.2 % (0.0-10.0); %Lymphocytes 18.6 % (21.0-51.0); %Monocytes 7.3 % (0.0-10.0); %Neutrophils 73.3 % (42.0-75.0); Hemoglobin 16.6 g/dL (14.0-18.0); Mean Corpuscular HGB CONC 33.5 g/dL (32.0-36.0); Mean Corpuscular Hemoglobin 31.2 pg (27.0-31.0); Mean Corpuscular Volume 92.9 fL (78.0-98.0); Mean Platelet Volume 7.6 fL (7.4-10.4); Platelet Count 249 thou/uL (130-400); RBC Distribution Width 12.4 % (11.5-14.5); Red Blood Cell (RBC) Count 5.33 mill/uL (4.70-6.10); White Blood Cell (WBC) Count 9.7 thou/uL (4.8-10.8)
[2021-05-22 09:31] LABS: Bilirubin Negative (Negative); Blood, Urine 1+ (Negative); Clarity Clear (Clear); Glucose, Urine (Dipstick) Greater than 1000 mg/dL (Negative); Ketone, Urine 20 mg/dL (Negative); Leukocyte Negative Leu/uL (Negative); Nitrite Negative (Negative); Protein, Urine (Dipstick) 300 mg/dL (Neg-Trace); RBC/HPF 0-3 HPF (0-3); Specific Gravity, Urine 1.026 (1.002-1.036); Squamous Epithelial None Seen HPF (0-3); Urobilinogen Normal mg/dL (Less than 2); WBC/HPF 0-3 HPF (0-3)
[2021-05-22 09:32] LABS: Bacteria/HPF Rare-Few HPF (None Seen)
[2021-05-22 09:44] LABS: ALT (SGPT) 13 U/L (8-55); AST (SGOT) 16 U/L (5-34); Albumin 3.7 g/dL (3.4-4.8); Alkaline Phosphatase 79 U/L (40-110); Anion Gap 17 mmol/L (10-20); BUN (Urea Nitrogen) 42 mg/dL (8.4-25.7); Bilirubin, Total 1.2 mg/dL (0.2-1.2); Calc. Creatinine Clearance 0 mL/min (70-130); Calcium 8.5 mg/dL (7.8-10.44); Carbon Dioxide 21 mmol/L (23-31); Chloride 98 mmol/L (98-107); Globulin 3.2 g/dL (2.4-3.5); Glucose 332 mg/dL (80-115); Lipase 32 U/L (8-78); Potassium 4.4 mmol/L (3.5-5.1); Protein, Total 6.9 g/dL (5.8-8.1); Sodium 132 mmol/L (136-145)
[2021-05-22] MEDS ORDERED: Enoxaparin Sodium 100 MG/ML SYRINGE ONE (11:04)
[2021-05-22] MEDS ORDERED: Acetaminophen 325 MG TAB PO PRN (11:11)
[2021-05-22] MEDS ORDERED: Ondansetron PF 4 MG/2 ML Vial IVP PRN (11:11)
[2021-05-22] MEDS ORDERED: Acetaminophen 650 MG Suppository PR PRN (11:11)
[2021-05-22] MEDS ORDERED: HumaLOG 300 UNITS/3 ML VIAL SC PRN (11:30)
[2021-05-22] MEDS ORDERED: Dextrose 5% in Water 1,000 ML IV PRN (11:30)
[2021-05-22] MEDS ORDERED: Dextrose 50% Abboject 50 ML SYRINGE SLOW IVP PRN (11:30)
[2021-05-22] MEDS ORDERED: Aspirin 325 MG TAB ONE (11:39)
[2021-05-22] MEDS ORDERED: Levothyroxine Sodium 75 MCG TAB PO SCH (11:45)
[2021-05-22] MEDS ORDERED: Magnesium 2 GM/50 ML(in water) 2 GM in Premix Bag 1 BAG IVPB SCH (11:45)
[2021-05-22 12:00] LABS: Magnesium 2.3 mg/dL (1.6-2.6)
[2021-05-22] MEDS ORDERED: metroNIDAZOLE 500 MG in Premix Bag 1 BAG IVPB SCH (12:15)
[2021-05-22] MEDS ORDERED: cefTRIAXone\\ROCEPHIN 1 GM in Sodium Chloride 0.9% 100 ML IVPB SCH (13:00)
[2021-05-22] MEDS ORDERED: Magnesium 2 GM/50 ML BAG (IN WATER) ONE (13:18)
[2021-05-22] MEDS: Sodium Chloride 0.9% 1,000 ML IV SCH ×2 (13:35→20:05)
[2021-05-22 14:07] LABS: Troponin I 0.015 ng/mL (< 0.028)
[2021-05-22] MEDS ORDERED: cefTRIAXone\\ROCEPHIN 1 GM VIAL ONE (14:24)
[2021-05-22 16:03] LABS: Troponin I 0.016 ng/mL (< 0.028)
[2021-05-22] MEDS ORDERED: Calcium Carbonate 500 MG ChewTAB PO PRN (16:11)
[2021-05-22] MEDS: Ondansetron ODT 4 MG TAB PO PRN (16:17)
[2021-05-22 16:46] VITALS: BMI 31.8
[2021-05-22] MEDS: Atorvastatin Calcium 40 MG TAB PO SCH (20:03)
[2021-05-22] MEDS: Carvedilol 6.25 MG TAB PO SCH (20:03)
[2021-05-22 23:21] LABS: SARS-CoV-2 PCR by NAA Not Detected (NotDetected)
[2021-05-23 04:44] LABS: #Eosinphils 0.1 thou/uL (0.0-0.7); #Monocytes 0.6 thou/uL (0.11-0.59); #Neutrophils 3.7 thou/uL (1.40-6.50); %Basophils 0.6 % (0.0-1.0); %Lymphocytes 30.4 % (21.0-51.0); %Monocytes 9.2 % (0.0-10.0); %Neutrophils 57.9 % (42.0-75.0); Hemoglobin 13.7 g/dL (14.0-18.0); Mean Corpuscular HGB CONC 33.2 g/dL (32.0-36.0); Mean Corpuscular Volume 93.4 fL (78.0-98.0); Mean Platelet Volume 7.2 fL (7.4-10.4); Platelet Count 209 thou/uL (130-400); RBC Distribution Width 12.3 % (11.5-14.5); Red Blood Cell (RBC) Count 4.43 mill/uL (4.70-6.10); White Blood Cell (WBC) Count 6.4 thou/uL (4.8-10.8)
[2021-05-23 05:06] LABS: Anion Gap 11 mmol/L (10-20); BUN (Urea Nitrogen) 29 mg/dL (8.4-25.7); Calc. Creatinine Clearance 67 mL/min (70-130); Calcium 7.6 mg/dL (7.8-10.44); Carbon Dioxide 22 mmol/L (23-31); Chloride 105 mmol/L (98-107); Glucose 245 mg/dL (80-115); Potassium 4.2 mmol/L (3.5-5.1); Sodium 134 mmol/L (136-145)
[2021-05-23] MEDS: Sodium Chloride 0.9% 1,000 ML IV SCH ×2 (05:44→16:28)
[2021-05-23] MEDS: Levothyroxine Sodium 75 MCG TAB PO SCH (05:44)
[2021-05-23] MEDS: Ondansetron ODT 4 MG TAB PO PRN (07:56)
[2021-05-23] MEDS ORDERED: Aspirin 81 mg Enteric Coated Tablet PO SCH (10:15)
[2021-05-23] MEDS ORDERED: Loratadine 10 MG TAB PO SCH (10:15)
[2021-05-23] MEDS ORDERED: Carvedilol 25 MG TAB PO SCH (10:15)
[2021-05-23] MEDS ORDERED: Pregabalin 50 MG CAP PO SCH (10:30)
[2021-05-23] MEDS ORDERED: Rosuvastatin 10 MG TAB PO SCH (10:30)
[2021-05-23] MEDS: HumaLOG 300 UNITS/3 ML VIAL SC PRN ×2 (11:52→16:28)
[2021-05-23] MEDS: Carvedilol 6.25 MG TAB PO SCH (19:49)
[2021-05-23] MEDS: Atorvastatin Calcium 40 MG TAB PO SCH (20:30)
[2021-05-23] MEDS: Pregabalin 50 MG CAP PO SCH (20:30)
[2021-05-23] MEDS: Carvedilol 25 MG TAB PO SCH (20:30)
[2021-05-23] MEDS: Allopurinol 300 MG TAB PO SCH (20:31)
[2021-05-23] MEDS ORDERED: Pregabalin 25 MG CAP PO SCH (21:00)
[2021-05-24] MEDS: Levothyroxine Sodium 75 MCG TAB PO SCH (04:11)
[2021-05-24] MEDS: Sodium Chloride 0.9% 1,000 ML IV SCH ×2 (04:12→04:13)
[2021-05-24 04:27] LABS: #Basophils 0.1 thou/uL (0.0-0.2); #Eosinphils 0.3 thou/uL (0.0-0.7); #Lymphocytes 1.9 thou/uL (1.20-3.40); #Monocytes 0.5 thou/uL (0.11-0.59); #Neutrophils 3.6 thou/uL (1.40-6.50); %Basophils 0.8 % (0.0-1.0); %Eosinophils 5.2 % (0.0-10.0); %Lymphocytes 29.6 % (21.0-51.0); %Monocytes 7.3 % (0.0-10.0); Hemoglobin 13.7 g/dL (14.0-18.0); Mean Corpuscular HGB CONC 32.6 g/dL (32.0-36.0); Mean Corpuscular Hemoglobin 30.5 pg (27.0-31.0); Mean Corpuscular Volume 93.8 fL (78.0-98.0); Mean Platelet Volume 7.2 fL (7.4-10.4); Platelet Count 192 thou/uL (130-400); RBC Distribution Width 12.2 % (11.5-14.5); Red Blood Cell (RBC) Count 4.49 mill/uL (4.70-6.10); White Blood Cell (WBC) Count 6.4 thou/uL (4.8-10.8)
[2021-05-24 04:49] LABS: Anion Gap 11 mmol/L (10-20); BUN (Urea Nitrogen) 23 mg/dL (8.4-25.7); Calc. Creatinine Clearance 69 mL/min (70-130); Calcium 7.8 mg/dL (7.8-10.44); Carbon Dioxide 22 mmol/L (23-31); Chloride 108 mmol/L (98-107); Glucose 237 mg/dL (80-115); Potassium 4.6 mmol/L (3.5-5.1); Sodium 136 mmol/L (136-145)
[2021-05-24] MEDS: HumaLOG 300 UNITS/3 ML VIAL SC PRN (05:51)
[2021-05-24] MEDS ORDERED: Non-Formulary Item 1 EACH (Levothyroxine Sodium [Levothyroxine] 75 MCG Capsule) PO SCH (06:00)
[2021-05-24 07:35] VITALS: BP 155/83; TEMP 98
[2021-05-24] MEDS ORDERED: Cetirizine HCl 10 MG TAB PO SCH (09:00)
[2021-05-24] MEDS ORDERED: Loratadine 10 MG TAB PO SCH (09:00)
[2021-05-24] MEDS ORDERED: Rosuvastatin 10 MG TAB PO SCH ×2 (09:00)
[2021-05-24] MEDS ORDERED: Aspirin 81 mg Enteric Coated Tablet PO SCH (09:00)
[2021-05-24] MEDS: Carvedilol 25 MG TAB PO SCH (09:11)
[2021-05-24] MEDS: Allopurinol 300 MG TAB PO SCH (09:11)
[2021-05-24] MEDS: Pregabalin 50 MG CAP PO SCH (09:11)
== END 2021-05-24 11:35 | disposition home or self-care (01) ==
LOC: ERS 08:13 → ERHOLD 10:32 → 2SW 15:29
PROVIDERS: ADMIT Internal Medicine; ATTEND Internal Medicine
DX: I48.91 Unspecified atrial fibrillation (principal); K52.9 Noninfective gastroenteritis and colitis, unspecified; I13.10 Hypertensive heart and chronic kidney disease without heart failure, with stage 1 through stage 4 chronic kidney disease, or unspecified chronic kidney disease; E11.22 Type 2 diabetes mellitus with diabetic chronic kidney disease; N18.9 Chronic kidney disease, unspecified; N17.9 Acute kidney failure, unspecified; D63.1 Anemia in chronic kidney disease; E78.5 Hyperlipidemia, unspecified; E03.9 Hypothyroidism, unspecified; I25.10 Atherosclerotic heart disease of native coronary artery without angina pectoris; I08.1 Rheumatic disorders of both mitral and tricuspid valves; Z79.4 Long term (current) use of insulin; Z79.84 Long term (current) use of oral hypoglycemic drugs; Z79.890 Hormone replacement therapy; Z79.899 Other long term (current) drug therapy; Z91.040 Latex allergy status; Z95.1 Presence of aortocoronary bypass graft; Z90.5 Acquired absence of kidney; Z20.822 Contact with and (suspected) exposure to COVID-19
CPT/HCPCS: 71045; 80048 ×2; 82962 ×3; 83690; 83735; 84484 ×2; 85025 ×2; 93005; 93306; 96372; 96374; 96375; 96376; 99285; U0003; U0005; 36415; 36416; 80053; 81003; 81015; 84443; G0378; J0696; J1650; J1815; J2405; J3475; J3490; J7050; Q0162

== ENCOUNTER 2022-04-18 13:28 | Emergency (ER) | payer MEDICARE ==
[2022-04-18 15:32] LABS: #Eosinphils 0.3 thou/uL (0.0-0.7); #Lymphocytes 1.5 thou/uL (1.20-3.40); #Monocytes 0.6 thou/uL (0.11-0.59); #Neutrophils 5.6 thou/uL (1.40-6.50); %Basophils 0.4 % (0.0-1.0); %Eosinophils 3.3 % (0.0-10.0); %Lymphocytes 18.3 % (21.0-51.0); %Monocytes 6.9 % (0.0-10.0); %Neutrophils 71.1 % (42.0-75.0); Hemoglobin 15.7 g/dL (14.0-18.0); Mean Corpuscular HGB CONC 33.5 g/dL (32.0-36.0); Mean Corpuscular Hemoglobin 30.5 pg (27.0-31.0); Mean Corpuscular Volume 91.2 fl (78.0-98.0); Platelet Count 214 10x3/uL (130-400); RBC Distribution Width 12.7 % (11.5-14.5); Red Blood Cell (RBC) Count 5.13 mill/uL (4.70-6.10); White Blood Cell (WBC) Count 7.9 10x3/uL (4.8-10.8)
[2022-04-18] MEDS ORDERED: diphenhydrAMINE 50 MG/ML VIAL ONE (15:34)
[2022-04-18] MEDS ORDERED: Ketorolac Tromethamine 30 MG/ML VIAL ONE (15:35)
[2022-04-18] MEDS ORDERED: Metoclopramide HCl 10 MG/2 ML VIAL ONE (15:35)
[2022-04-18 15:44] LABS: ALT (SGPT) 14 U/L (8-55); AST (SGOT) 22 U/L (5-34); Albumin 3.8 g/dL (3.4-4.8); Alkaline Phosphatase 91 U/L (40-110); Anion Gap 17 mmol/L (10-20); BUN (Urea Nitrogen) 40 mg/dL (8.4-25.7); Bilirubin, Total 0.8 mg/dL (0.2-1.2); Calc. Creatinine Clearance 0 mL/min (70-130); Calcium 9.4 mg/dL (7.8-10.44); Carbon Dioxide 20 mmol/L (23-31); Chloride 104 mmol/L (98-107); Estimated GFR 43; Globulin 3.3 g/dL (2.4-3.5); Glucose 95 mg/dL (80-115); Potassium 4.4 mmol/L (3.5-5.1); Protein, Total 7.1 g/dL (5.8-8.1); Sodium 137 mmol/L (136-145)
== END 2022-04-18 16:38 | disposition home or self-care (01) ==
LOC: ERS 13:28
DX: R51.9 Headache, unspecified (principal); M54.2 Cervicalgia; E03.9 Hypothyroidism, unspecified; E11.9 Type 2 diabetes mellitus without complications; E78.00 Pure hypercholesterolemia, unspecified; Z79.01 Long term (current) use of anticoagulants
CPT/HCPCS: 36415; 64450; 70450; 80053; 85025; 96365; 96375; J1200; J1885; J2765

== ENCOUNTER 2022-04-23 08:58 | Outpatient (CLI) | payer MEDICARE, OTHER | END 2022-04-23 08:59 | disposition home or self-care (01) | LOC: BICRAD 08:58 | PROVIDERS: ATTEND Specialist | DX: M54.2 Cervicalgia (principal); M47.812 Spondylosis without myelopathy or radiculopathy, cervical region | CPT/HCPCS: 72040 ==

== ENCOUNTER 2022-05-09 10:59 | Observation (INO) | payer MEDICARE, OTHER ==
[2022-05-09 11:26] LABS: #Eosinphils 0.2 thou/uL (0.0-0.7); #Lymphocytes 1.4 thou/uL (1.20-3.40); #Monocytes 0.6 thou/uL (0.11-0.59); #Neutrophils 7.3 thou/uL (1.40-6.50); %Basophils 0.4 % (0.0-1.0); %Eosinophils 2.2 % (0.0-10.0); %Lymphocytes 14.9 % (21.0-51.0); %Monocytes 6.5 % (0.0-10.0); Hemoglobin 17.1 g/dL (14.0-18.0); Mean Corpuscular HGB CONC 33.4 g/dL (32.0-36.0); Mean Corpuscular Hemoglobin 30.6 pg (27.0-31.0); Mean Corpuscular Volume 91.6 fl (78.0-98.0); Mean Platelet Volume 7.8 fL (7.4-10.4); Platelet Count 200 10x3/uL (130-400); RBC Distribution Width 13.4 % (11.5-14.5); Red Blood Cell (RBC) Count 5.58 mill/uL (4.70-6.10); White Blood Cell (WBC) Count 9.5 10x3/uL (4.8-10.8)
[2022-05-09] MEDS ORDERED: Nitroglycerin 2% Ointment 1 INCH/1 GM Packet ONE (11:33)
[2022-05-09] MEDS ORDERED: Nitroglycerin 0.4 MG TAB 1 EACH ONE (11:33)
[2022-05-09 12:17] LABS: Albumin 4.1 g/dL (3.4-4.8)
[2022-05-09 12:18] LABS: Chloride 109 mmol/L (98-107); Sodium 141 mmol/L (136-145)
[2022-05-09 12:19] LABS: Calcium 8.9 mg/dL (7.8-10.44)
[2022-05-09 12:20] LABS: Globulin 3.1 g/dL (2.4-3.5); Glucose 140 mg/dL (80-115); Protein, Total 7.2 g/dL (5.8-8.1)
[2022-05-09 12:21] LABS: Anion Gap 15 mmol/L (10-20); Carbon Dioxide 21 mmol/L (23-31)
[2022-05-09 12:22] LABS: Alkaline Phosphatase 92 U/L (40-110); Bilirubin, Total 0.8 mg/dL (0.2-1.2)
[2022-05-09 12:23] LABS: Calc. Creatinine Clearance 0 mL/min (70-130); Estimated GFR 62
[2022-05-09 12:24] LABS: BUN (Urea Nitrogen) 28 mg/dL (8.4-25.7)
[2022-05-09 12:25] LABS: AST (SGOT) 22 U/L (5-34)
[2022-05-09 12:26] LABS: ALT (SGPT) 18 U/L (8-55); Lipase 43 U/L (8-78)
[2022-05-09] MEDS ORDERED: Ondansetron ODT 4 MG TAB PO PRN (13:36)
[2022-05-09] MEDS ORDERED: Ondansetron PF 4 MG/2 ML Vial IVP PRN (13:36)
[2022-05-09] MEDS ORDERED: Acetaminophen 325 MG TAB PO PRN (13:36)
[2022-05-09] MEDS ORDERED: Dextrose 50% Abboject 50 ML SYRINGE SLOW IVP PRN (13:39)
[2022-05-09] MEDS ORDERED: HumaLOG 300 UNITS/3 ML VIAL SC PRN ×2 (13:39)
[2022-05-09] MEDS ORDERED: Dextrose 5% in Water 1,000 ML IV PRN (13:39)
[2022-05-09 14:38] LABS: Hemoglobin A1c 6.9 % (4.0-6.0)
[2022-05-09 14:52] LABS: Magnesium 2.1 mg/dL (1.6-2.6)
[2022-05-09 14:56] LABS: Troponin I Less than 0.010 ng/mL (< 0.028)
[2022-05-09 15:07] VITALS: BMI 32.6
[2022-05-09 18:29] LABS: Troponin I Less than 0.010 ng/mL (< 0.028)
[2022-05-09] MEDS: Cyclobenzaprine 10 MG TAB PO SCH (20:10)
[2022-05-09] MEDS: Carvedilol 25 MG TAB PO SCH (20:10)
[2022-05-09] MEDS ORDERED: Rosuvastatin 10 MG TAB PO SCH (21:00)
[2022-05-10 05:27] LABS: #Basophils 0.1 thou/uL (0.0-0.2); #Eosinphils 0.2 thou/uL (0.0-0.7); #Monocytes 0.9 thou/uL (0.11-0.59); #Neutrophils 5.9 thou/uL (1.40-6.50); %Basophils 0.8 % (0.0-1.0); %Eosinophils 2.7 % (0.0-10.0); %Lymphocytes 22.3 % (21.0-51.0); %Monocytes 9.6 % (0.0-10.0); %Neutrophils 64.7 % (42.0-75.0); Hemoglobin 15.8 g/dL (14.0-18.0); Mean Corpuscular HGB CONC 33.6 g/dL (32.0-36.0); Mean Corpuscular Hemoglobin 30.6 pg (27.0-31.0); Mean Corpuscular Volume 91.3 fl (78.0-98.0); Mean Platelet Volume 8.2 fL (7.4-10.4); Platelet Count 178 10x3/uL (130-400); RBC Distribution Width 13.3 % (11.5-14.5); Red Blood Cell (RBC) Count 5.17 mill/uL (4.70-6.10); White Blood Cell (WBC) Count 9.2 10x3/uL (4.8-10.8)
[2022-05-10 05:46] LABS: Anion Gap 13 mmol/L (10-20); BUN (Urea Nitrogen) 32 mg/dL (8.4-25.7); Calc. Creatinine Clearance 60 mL/min (70-130); Calcium 8.6 mg/dL (7.8-10.44); Carbon Dioxide 18 mmol/L (23-31); Chloride 112 mmol/L (98-107); Estimated GFR 50; Glucose 213 mg/dL (80-115); Potassium 3.8 mmol/L (3.5-5.1); Sodium 139 mmol/L (136-145)
[2022-05-10] MEDS ORDERED: Levothyroxine Sodium 75 MCG TAB PO SCH (06:00)
[2022-05-10] MEDS: Cyclobenzaprine 10 MG TAB PO SCH ×2 (08:34→15:45)
[2022-05-10] MEDS ORDERED: Aspirin Chewable 81 MG TAB PO SCH (09:00)
[2022-05-10] MEDS ORDERED: Apixaban 5 MG TAB PO SCH (09:00)
[2022-05-10] MEDS ORDERED: ADENOSINE 60 MG/20 ML VIAL ONE (09:32)
[2022-05-10] MEDS: Carvedilol 25 MG TAB PO SCH (12:55)
[2022-05-10 15:49] VITALS: BP 116/69; TEMP 97.8
== END 2022-05-10 16:30 | disposition home or self-care (01) ==
LOC: ERS 10:59 → 2SW 13:34
PROVIDERS: ADMIT Family Medicine; ATTEND Family Medicine
DX: R07.89 Other chest pain (principal); I48.0 Paroxysmal atrial fibrillation; I11.0 Hypertensive heart disease with heart failure; I50.32 Chronic diastolic (congestive) heart failure; E11.9 Type 2 diabetes mellitus without complications; E03.9 Hypothyroidism, unspecified; E78.00 Pure hypercholesterolemia, unspecified; I25.10 Atherosclerotic heart disease of native coronary artery without angina pectoris; N28.9 Disorder of kidney and ureter, unspecified; Z79.01 Long term (current) use of anticoagulants; Z79.4 Long term (current) use of insulin; Z79.84 Long term (current) use of oral hypoglycemic drugs; Z79.890 Hormone replacement therapy; Z79.899 Other long term (current) drug therapy; Z91.040 Latex allergy status; Z95.1 Presence of aortocoronary bypass graft; Z90.5 Acquired absence of kidney; Z20.822 Contact with and (suspected) exposure to COVID-19
CPT/HCPCS: 71045; 78452; 80048; 82962 ×2; 83036; 83690; 83735; 83880; 84484 ×2; 85025; 93005 ×2; 93017; 94760; 99285; A9500; G0378 ×3; U0003; U0005; 36415; 36416; 80053; 84443; 93010

== ENCOUNTER 2022-05-16 08:18 | Outpatient (CLI) | payer OTHER | END 2022-05-16 08:19 | disposition home or self-care (01) | LOC: MRI 08:18 | PROVIDERS: ATTEND Specialist | DX: M47.22 Other spondylosis with radiculopathy, cervical region (principal); R22.1 Localized swelling, mass and lump, neck; M50.11 Cervical disc disorder with radiculopathy, high cervical region; M50.121 Cervical disc disorder at C4-C5 level with radiculopathy | CPT/HCPCS: 72141 ==

== ENCOUNTER 2022-06-13 15:47 | Outpatient (CLI) | payer MEDICARE | END 2022-06-13 15:48 | disposition home or self-care (01) | LOC: ULT 15:47 | PROVIDERS: ATTEND Plastic Surgery Surgery of the Hand | DX: E01.0 Iodine-deficiency related diffuse (endemic) goiter (principal); E07.89 Other specified disorders of thyroid | CPT/HCPCS: 76536 ==

== ENCOUNTER 2022-06-24 20:48 | Emergency (ER) | payer MEDICARE ==
[2022-06-24 23:09] LABS: #Basophils 0.1 thou/uL (0.0-0.2); #Eosinphils 0.1 thou/uL (0.0-0.7); #Lymphocytes 1.2 thou/uL (1.20-3.40); #Monocytes 0.3 thou/uL (0.11-0.59); #Neutrophils 7.2 thou/uL (1.40-6.50); %Basophils 0.7 % (0.0-1.0); %Eosinophils 1.4 % (0.0-10.0); %Lymphocytes 13.8 % (21.0-51.0); %Monocytes 3.1 % (0.0-10.0); Hemoglobin 16.7 g/dL (14.0-18.0); Mean Corpuscular HGB CONC 34.8 g/dL (32.0-36.0); Mean Corpuscular Hemoglobin 31.7 pg (27.0-31.0); Mean Platelet Volume 7.3 fL (7.4-10.4); Platelet Count 215 10x3/uL (130-400); RBC Distribution Width 13.1 % (11.5-14.5); Red Blood Cell (RBC) Count 5.28 mill/uL (4.70-6.10); White Blood Cell (WBC) Count 8.9 10x3/uL (4.8-10.8)
[2022-06-24 23:21] LABS: Prothrombin Time 13.8 sec (12.0-14.7)
[2022-06-24 23:22] LABS: PTT 35.7 sec (22.9-36.1)
[2022-06-24 23:28] LABS: Globulin 2.7 g/dL (2.4-3.5); Protein, Total 6.7 g/dL (5.8-8.1)
[2022-06-24 23:29] LABS: ALT (SGPT) 13 U/L (8-55); AST (SGOT) 24 U/L (5-34); Alkaline Phosphatase 88 U/L (40-110); Anion Gap 15 mmol/L (10-20); BUN (Urea Nitrogen) 31 mg/dL (8.4-25.7); Bilirubin, Total 0.7 mg/dL (0.2-1.2); Calc. Creatinine Clearance 0 mL/min (70-130); Carbon Dioxide 22 mmol/L (23-31); Chloride 107 mmol/L (98-107); Estimated GFR 56; Glucose 147 mg/dL (80-115); Potassium 5.1 mmol/L (3.5-5.1); Sodium 139 mmol/L (136-145)
== END 2022-06-25 01:15 | disposition home or self-care (01) ==
LOC: ERS 20:48
DX: E11.65 Type 2 diabetes mellitus with hyperglycemia (principal); E78.00 Pure hypercholesterolemia, unspecified; E03.9 Hypothyroidism, unspecified; Z79.01 Long term (current) use of anticoagulants
CPT/HCPCS: 36415; 36416; 70450; 80053; 84484; 85025; 85610; 85730; 93005

== ENCOUNTER 2022-10-29 18:10 | Emergency (ER) | payer MEDICARE ==
[2022-10-29] MEDS ORDERED: Boostrix 0.5 ML (Tdap) VIAL (>/=7 yrs of age) ONE (19:52)
== END 2022-10-29 20:46 | disposition home or self-care (01) ==
LOC: ERS 18:10
DX: L03.115 Cellulitis of right lower limb (principal); I10 Essential (primary) hypertension; E11.65 Type 2 diabetes mellitus with hyperglycemia; E78.00 Pure hypercholesterolemia, unspecified; E03.9 Hypothyroidism, unspecified; Z23 Encounter for immunization
CPT/HCPCS: 36416; 90471; 90715

== ENCOUNTER 2023-08-24 16:02 | Observation (INO) | payer MEDICARE ==
[2023-08-24] MEDS ORDERED: Aspirin Chewable 81 MG TAB ONE (17:19)
[2023-08-24 17:29] LABS: #Basophils 0.03 10x3/uL (0.0-0.2); %Basophils 0.4 % (0.0-1.0); %Eosinophils 4.8 % (0.0-10.0); %Lymphocytes 28.5 % (21.0-51.0); %Monocytes 7.8 % (0.0-10.0); %Neutrophils 58.2 % (42.0-75.0); Hematocrit 39.9 % (42.0-52.0); Hemoglobin 13.6 g/dL (14.0-18.0); Mean Corpuscular HGB CONC 34.1 g/dL (32.0-36.0); Mean Corpuscular Hemoglobin 30.3 pg (27.0-31.0); Mean Corpuscular Volume 88.9 fL (78.0-98.0); Mean Platelet Volume 10.9 fL (7.4-10.4); Platelet Count 187 10x3/uL (130-400); RBC Distribution Width 13.3 % (11.5-14.5); Red Blood Cell (RBC) Count 4.49 mill/uL (4.70-6.10)
[2023-08-24 17:44] LABS: ALT (SGPT) 13 U/L (8-55); AST (SGOT) 19 U/L (5-34); Albumin 3.6 g/dL (3.4-4.8); Alkaline Phosphatase 57 U/L (40-110); Anion Gap 17 mmol/L (10-20); BUN (Urea Nitrogen) 36 mg/dL (8.4-25.7); Bilirubin, Total 0.4 mg/dL (0.2-1.2); Calc. Creatinine Clearance 0 mL/min (70-130); Calcium 9.3 mg/dL (7.8-10.44); Carbon Dioxide 20 mmol/L (23-31); Chloride 110 mmol/L (98-107); Estimated GFR 58; Globulin 3.3 g/dL (2.4-3.5); Glucose 77 mg/dL (80-115); Lipase 91 U/L (8-78); Potassium 4.2 mmol/L (3.5-5.1); Protein, Total 6.9 g/dL (5.8-8.1); Sodium 143 mmol/L (136-145)
[2023-08-24 17:49] LABS: Troponin I Less than 0.010 ng/mL (< 0.028)
[2023-08-24] MEDS ORDERED: Pantoprazole 40 MG VIAL ONE (17:58)
[2023-08-24] MEDS ORDERED: Nitroglycerin 2% Ointment 1 INCH/1 GM Packet ONE (17:58)
[2023-08-24] MEDS ORDERED: Dextrose 5% in Water 1,000 ML IV PRN (18:32)
[2023-08-24] MEDS ORDERED: Acetaminophen 325 MG TAB PO PRN (18:32)
[2023-08-24] MEDS ORDERED: Dextrose 50% Abboject 50 ML SYRINGE SLOW IVP PRN (18:32)
[2023-08-24] MEDS ORDERED: Ondansetron PF 4 MG/2 ML Vial IVP PRN (18:32)
[2023-08-24] MEDS ORDERED: Glucagon 1 MG/ML KIT IM PRN (18:32)
[2023-08-24] MEDS ORDERED: Nitroglycerin 0.4 MG TAB (25 Tab Bottle) SL PRN (18:40)
[2023-08-24 20:14] VITALS: BMI 34.7
[2023-08-24] MEDS: Cyclobenzaprine 10 MG TAB PO SCH (21:33)
[2023-08-24] MEDS: Rosuvastatin 10 MG TAB PO SCH (21:33)
[2023-08-24] MEDS: Apixaban 5 MG TAB PO SCH (21:33)
[2023-08-24] MEDS: Famotidine 20 MG TAB PO SCH (21:33)
[2023-08-24] MEDS: Carvedilol 25 MG TAB PO SCH (21:33)
[2023-08-24 23:30] LABS: Troponin I 0.017 ng/mL (< 0.028)
[2023-08-25 02:47] LABS: #Basophils 0.03 10x3/uL (0.0-0.2); %Basophils 0.4 % (0.0-1.0); %Eosinophils 4.2 % (0.0-10.0); %Monocytes 6.8 % (0.0-10.0); %Neutrophils 62.5 % (42.0-75.0); Hematocrit 38.5 % (42.0-52.0); Hemoglobin 12.9 g/dL (14.0-18.0); Mean Corpuscular HGB CONC 33.5 g/dL (32.0-36.0); Mean Corpuscular Hemoglobin 30.4 pg (27.0-31.0); Mean Corpuscular Volume 90.6 fL (78.0-98.0); Mean Platelet Volume 10.4 fL (7.4-10.4); Platelet Count 168 10x3/uL (130-400); RBC Distribution Width 13.3 % (11.5-14.5); Red Blood Cell (RBC) Count 4.25 mill/uL (4.70-6.10)
[2023-08-25 03:09] LABS: Troponin I 0.017 ng/mL (< 0.028)
[2023-08-25 04:18] LABS: Anion Gap 14 mmol/L (10-20); BUN (Urea Nitrogen) 31 mg/dL (8.4-25.7); Calc. Creatinine Clearance 81 mL/min (70-130); Calcium 8.5 mg/dL (7.8-10.44); Carbon Dioxide 17 mmol/L (23-31); Chloride 112 mmol/L (98-107); Estimated GFR 68; Glucose 164 mg/dL (80-115); Potassium 4.2 mmol/L (3.5-5.1); Sodium 139 mmol/L (136-145)
[2023-08-25] MEDS: Levothyroxine Sodium 75 MCG TAB PO SCH (07:00)
[2023-08-25] MEDS: Aspirin 81 mg Enteric Coated Tablet PO SCH (09:49)
[2023-08-25 12:16] VITALS: BP 163/88; TEMP 98.2
== END 2023-08-25 15:15 | disposition home or self-care (01) ==
LOC: ERS 16:02 → 2SE 18:36
PROVIDERS: ADMIT Family Medicine; ATTEND Family Medicine
DX: R07.89 Other chest pain (principal); K21.9 Gastro-esophageal reflux disease without esophagitis; I25.10 Atherosclerotic heart disease of native coronary artery without angina pectoris; I48.0 Paroxysmal atrial fibrillation; E11.9 Type 2 diabetes mellitus without complications; I10 Essential (primary) hypertension; E78.5 Hyperlipidemia, unspecified; E03.9 Hypothyroidism, unspecified; Z95.1 Presence of aortocoronary bypass graft; Z79.899 Other long term (current) drug therapy; Z79.01 Long term (current) use of anticoagulants; Z79.84 Long term (current) use of oral hypoglycemic drugs; Z79.4 Long term (current) use of insulin; Z91.040 Latex allergy status; Z90.49 Acquired absence of other specified parts of digestive tract
CPT/HCPCS: 71045; 80048; 80053; 82962; 83690; 83880; 84484 ×3; 85025 ×2; 93005 ×2; 94760; 96374; 99285; C9113; G0378 ×3; 36415; 36416; 93010

== ENCOUNTER 2024-02-25 15:23 | Emergency (ER) | payer MEDICARE ==
[2024-02-25 16:02] LABS: Bacteria/HPF None Seen HPF (None Seen); Bilirubin Negative (Negative); Blood, Urine 1+ (Negative); CAUTI Indications for Culture Pelvic or flank pain; Clarity Clear (Clear); Glucose, Urine (Dipstick) 500 mg/dL (Negative); Ketone, Urine Negative (Negative); Leukocyte Negative Leu/uL (Negative); Nitrite Negative (Negative); Protein, Urine (Dipstick) 300 mg/dL (Neg-Trace); RBC/HPF 0-3 HPF (0-3); Specific Gravity, Urine 1.016 (1.002-1.036); Squamous Epithelial 0-3 HPF (0-3); Urobilinogen Normal mg/dL (Less than 2); WBC/HPF None Seen HPF (0-3)
[2024-02-25 16:07] LABS: Urine Culture Reflex No No
[2024-02-25] MEDS ORDERED: Ketorolac Tromethamine 30 MG (1 mL) VIAL ONE (16:27)
[2024-02-25] MEDS ORDERED: Lidocaine 4% Patch ONE (16:27)
== END 2024-02-25 16:54 | disposition home or self-care (01) ==
LOC: ERS 15:23
DX: M54.50 Low back pain, unspecified (principal); E78.00 Pure hypercholesterolemia, unspecified; E11.9 Type 2 diabetes mellitus without complications; Z79.01 Long term (current) use of anticoagulants; Z79.899 Other long term (current) drug therapy
CPT/HCPCS: 81001; 96372; 99283; J1885